=== PATIENT | female | born 1985 | race Two or more races ===

== ENCOUNTER → 2022-08-31 | Emergency (ER) | payer OTHER ==
[~2022-08-31] VITALS: Ht 167.6 cm; Wt 68.0 kg
[~2022-08-31] MED LIST: HYDROCODONE/APAP 5/325MG TABLET ONE; HYDROCODONE/APAP 5/325MG TABLET PO ONE; MELO15TA13 PO
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
--- NOTE | 2022-08-31 04:16 | NUR ---
Patient discharged to home in stable condition. Written and verbal after care instructions given. Patient verbalizes understanding of instruction. PT ambulatory with a steady gait
[2022-08-31 04:51] VITALS: BP 116/69
== END | disposition home or self-care (01) ==
LOC: ER 01:57
DX: M79.661 Pain in right lower leg (principal); M79.662 Pain in left lower leg; V49.9XXA Car occupant (driver) (passenger) injured in unspecified traffic accident, initial encounter; Y93.89 Activity, other specified; Y92.89 Other specified places as the place of occurrence of the external cause; Y99.8 Other external cause status
CPT/HCPCS: 73590-TC